=== PATIENT | female | born 1955 | race Caucasian/White ===

== ENCOUNTER 2024-10-11 16:29 | Emergency (ER) | payer BC, SELFPAY ==
[2024-10-11 16:31] VITALS: BP 151/105
[2024-10-11 17:23] VITALS: BP 127/95
[2024-10-11] MEDS: NSS 1000 IV (17:35)
[2024-10-11 17:42] LABS: % Basophils 0.9 % (0-2); % Eosinophils 1.1 % (0-6); % Immature Granulocytes 0.5 % (0-0.5); % Lymphocytes 26.2 % (20.5-51.1); % Monocytes 7.8 % (1.7-9.3); % Neutrophils 63.5 % (42.2-75.2); Absolute Basophils 0.1 10^3/uL (0-0.2); Absolute Eosinophils 0.1 10^3/uL (0-0.7); Absolute Lymphocytes 1.7 10^3/uL (1.2-3.4); Absolute Monocytes 0.5 10^3/uL (0.1-0.6); Absolute Neutrophils 4.2 10^3/uL (1.4-6.5); Hematocrit 34.5 % (37.0-47.0); Hemoglobin 12.1 g/dL (12.0-16.0); Mean Corp Hgb Conc. 35.1 g/dL (33.0-37.0); Mean Corpuscular Volume 102.7 fL (81.0-99.0); Mean Platelet Volume 9.3 fL (7.4-10.4); Nucleated Red Blood Cells % 0 %; Platelet Count 213 10^3/uL (130-400); Red Blood Cell Count 3.36 10^6/uL (4.20-5.40); Red Cell Dist. Width 13.2 % (11.5-14.5); White Blood Cell Count 6.6 10^3/uL (4.8-10.8)
[2024-10-11 18:00] VITALS: BP 141/91
[2024-10-11 18:00] LABS: ALT (SGPT) 23 U/L (0-35); AST (SGOT) 36 U/L (14-36); Albumin 3.4 g/dl (3.5-5.0); Alcohol 132 mg/dl; Alkaline Phosphatase 75 U/L (38-126); Blood Urea Nitrogen 7 mg/dl (7-17); Calcium 8.9 mg/dl (8.4-10.2); Carbon Dioxide 25 mmol/L (22-30); Chloride 108 mmol/L (98-107); Glucose 90 mg/dl (70-99); Lipase 367 U/L (23-300); Magnesium 1.8 mg/dl (1.6-2.3); Potassium 4.1 mmol/L (3.5-5.1); Sodium 139 mmol/L (135-145); Total Bilirubin 0.3 mg/dl (0.2-1.3); Total Protein 5.9 g/dl (6.3-8.2); eGFR > 60.00
--- NOTE | 2024-10-11 20:00 | ED.GENMED ---
History of Present Illness
General
Chief Complaint: Abdominal Symptoms
Source: patient and family
Exam Limitations: none
Time Seen by Provider: 10/11/24 17:08
Nursing documentation reviewed up to this point in time: agreed with
History of Present Illness
History of Present Illness:
Patient is a 69-year-old female with history hypertension, alcohol abuse who presents to the emergency department with multiple vague complaints. Patient states that over the past 2 weeks she has had intermittent vague abdominal discomfort
associated with nausea and vomiting. She has also had a few episodes of diarrhea. She reports very little appetite which has been an ongoing problem for her over the past many years and reports some recent weight loss. She denies any clear
postprandial pain or vomiting.
At this time�patient denies any current abdominal pain or nausea. She denies any chest pain or shortness of breath. She denies any associated fever or chills. She has had no dysuria. She states that her 'family made her come'.
Patient drinks 1.5 bottles of wine per day. She is not interested in decreasing alcohol use at this time for rehab/detox. She has no history of alcohol withdrawal seizures.
Review of Systems
Review of Systems
Allergies reviewed?: Yes
All Other Systems: ROS reviewed and negative except as documented in HPI and ROS
Phy Exam
Physical Exam
Physical Exam:
Vitals: Hypertensive, otherwise vital signs stable. Afebrile
General: Patient is well appearing, no acute distress
Skin: Warm and dry, no rashes or lesions
Head: Normocephalic, atraumatic
Eyes: Sclera nonicteric. EOMs intact. No nystagmus.
Throat: Dry mucous membranes. Protecting airway
Neck: Normal ROM, no cervical spine tenderness, no meningismus
Cardiac: Mildly tachycardic, normal rhythm, no murmurs.
Pulm: Normal respiratory effort, no wheezes, rales, rhonchi heard on exam
.
Abdomen: Abdomen soft and nontender. No distention. Negative De La Torre sign. No focal tenderness McBurney's point.
Extremities: No evidence of cyanosis or edema. Palpable DP pulse bilaterally
Neuro: AAOx3. Grossly intact.
Psychiatric: Normal affect.
Course
Orders/Labs/Results
Orders:
Orders
10/11/24 17:26
0.9% Sodium Chloride 1000 ml [Nss] 1,000 ml IV BOLUS
10/11/24 17:27
Electrocardiogram (*1) Urgent
Reason for Study: Abdominal Pain
CT Abd/pelvis W Iv Cont Urgent
Comment:
Reason For Exam: abdominal discomfort, anorexia
EKG- Treatment ONCE
10/11/24 17:33
Alcohol Urgent
Complete Blood Count/With Diff Urgent
Comprehensive Metabolic Panel Urgent
Lipase Urgent
Magnesium Urgent
Abnormal Lab Results
10/11/24
17:33
RBC 3.36 L 10^6/uL
(4.20-5.40)
Hct 34.5 L %
(37.0-47.0)
MCV 102.7 H fL
(81.0-99.0)
MCH 36.0 H pg
(27.0-31.0)
Chloride 108 H mmol/L
(98-107)
Total Protein 5.9 L g/dl
(6.3-8.2)
Albumin 3.4 L g/dl
(3.5-5.0)
Lipase 367 H U/L
(23-300)
10/11/24 17:33
10/11/24 17:33
Vital Signs
Initial and Last Documented VS:
Initial Vital Signs
Temp Pulse Resp BP Pulse Ox
97.8 F 120 24 151/105 99
10/11/24 16:31 10/11/24 16:31 10/11/24 16:31 10/11/24 16:31 10/11/24 16:31
Last Documented Vital Signs
Temp Pulse Resp BP Pulse Ox
97.8 F 100 20 157/98 96
10/11/24 16:31 10/11/24 20:28 10/11/24 20:28 10/11/24 20:33 10/11/24 20:28
MDM/Problems Addressed
Differential Diagnosis Includes:
Not limited to: Biliary colic, acute cholecystitis, pancreatitis, gastritis, appendicitis, diverticulitis, etc.
MDM/Problems Addressed:
69-year-old female presenting with a few weeks of intermittent abdominal discomfort, nausea, vomiting, diarrhea. No history of fever or chest pain. She has no dysuria. While in the emergency department�patient is asymptomatic and has no current
complaints. She does have a history of alcohol abuse although declines any services for rehab/detox. Patient hypertensive, tachycardic on arrival although somewhat improved by my assessment. Physical exam as above. Differential broad at this
time. Lower suspicion for acute cholecystitis or appendicitis given no areas of focal tenderness. ED plan: Check labs. Given very vague complaints and unremarkable abdominal exam�will obtain CT scan abdomen/pelvis. Will give IV fluids.
Update: Labs reviewed. No clinically significant abnormalities on CBC or chemistry. Lipase mildly elevated to [address] scan reveals no acute inflammatory processes in the abdomen. There was noted to be a subacute healing fracture of the
left 10th rib which was discussed with patient and she states she did have a fall a little bit ago. Patient received a liter of IV fluids in the emergency department and vital signs have improved. She remains asymptomatic and has had no episodes
of vomiting. No indication for admission. However�given duration of symptoms�feel outpatient GI follow-up warranted and she states that she will contact your GI doctor for further evaluation. She may require further testing such as an endoscopy.
Very strict return precautions discussed with patient and family. They are comfortable this plan
Chronic conditions affecting care:
Alcohol abuse
Acute Exacerbation and/or Progression of Chronic Illness:
N/A
*Radiology
Radiology exam reviewed: radiology read reviewed
*Pulse Oximetry
SaO2: 98
Oxygen Mode of Delivery: Room air
Patient hypoxic: no
*EKG
Interpreted by ED Provider?: Yes
EKG Intrepretation Date: 10/11/24
Interpretation: abnormal
Comparison EKG: no comparison EKG present
Heart Rate: 102
Rate: tachycardiac
Rhythm: sinus
Pray: normal axis
Interval: normal QT interval
QRS Pattern: normal QRS
Ischemia: no ischemia
*Meter Supervisor Interpretation
Rate: tachycardiac
Interpretation: abnormal
Heart Rate: 101
Rhythm: sinus
*Critical Care Note
Total Time (30-74mins, 75-104mins- exclusive of procedures): Not Applicable
Patient Management
Escalation/DeEscalation of care consider admission/obs:
Admit not indicated
ED Attending Note
-
Portions of this chart may have been created with voice recognition software.� Occasional wrong word or��sound alike� substitutions may have occurred due to the inherent limitations of voice recognition software.
Discharge Plan
Departure
Patient Disposition: Home (Routine Discharge)
Date of Disposition: 10/11/24
Time of Disposition: 20:24
Patient with high blood pressure during this ER visit?: Yes
Condition: Good
Discharge Problem:
Decreased appetite, Abdominal discomfort
Instructions: Abdominal Pain, BLOOD PRESSURE
Prescriptions:
New
ondansetron 4 mg tablet,disintegrating
4 mg PO Q8H PRN (Reason: nausea and vomiting) Qty: 7 0RF
Referrals:
Eleanor Foss CRNP [Family Provider]
Activity Restrictions/Additional Instructions:
RETURN TO THE EMERGENCY DEPARTMENT WITH ANY FEVERS, CHILLS, CHEST PAIN OR SHORTNESS OF BREATH, PERSISTENT ABDOMINAL PAIN OR INTRACTABLE NAUSEA/VOMITING, SIGNS OF SEVERE DEHYDRATION, OR ANY OTHER CONCERNS
- As discussed�your lab work did not show any acute abnormalities other than a mild elevation in your lipase. Your CT scan showed no acute intra-abdominal abnormality however does note a partially healed fracture of your left rib.
- It is important stay well-hydrated. You can take Zofran as needed for significant nausea or vomiting. Is important to eat a balanced diet.
- You should contact your GI doctor for further evaluation/management as this may require further testing if symptoms persist/worsen.
Monitor your symptoms closely and return to the emergency department with any acute worsening/new symptoms or any other concerns
Interventions
Interventions:
*Risk Screen - Suicide Last Done: 10/11/24 16:31
*General Assessment Last Done: 10/11/24 16:31
*Neglect/Abuse Screening Last Done: 10/11/24 16:31
*ED- Fall Risk Assessment Last Done: 10/11/24 19:07
*ED COVID-19 Vaccine History Last Done: 10/11/24 19:07
*Nursing Disposition Last Done: 10/11/24 20:59
MD-Ihybmq-Dkeopgxypu Assessment Last Done: 10/11/24 19:07
Discharge Date and Time
Discharge Date/Time: 10/11/24 21:01
Print Language: ROMANIAN
[2024-10-11 20:33] VITALS: BP 157/98
== END 2024-10-11 21:01 | disposition home or self-care (01) ==
LOC: EMR 16:29
PROVIDERS: Physician Assistant; EMERGENCY PHYSICIAN Student in an Organized Health Care Education/Training Program; FAMILY PHYSICIAN Nurse Practitioner Family
DX: R10.9 Unspecified abdominal pain (principal); R63.8 Other symptoms and signs concerning food and fluid intake; I10 Essential (primary) hypertension; Z87.81 Personal history of (healed) traumatic fracture
CPT/HCPCS: 96360; 99284; 74177; 80053; 82077; 83690; 83735; 85025; 93005; Q9967